=== PATIENT | female | born 1980 | race Caucasian/White ===

== ENCOUNTER 2019-05-31 08:27 | Outpatient (REF) | payer BC, SELFPAY ==
[2019-05-31 20:34] LABS: HCT 37.2 % (36.0-46.0); HGB 11.6 g/dL (12.0-15.5); Mean Corp. HGB Concentration 31.2 g/dL (32.0-36.0); Mean Corpuscular Hemoglobin 25.7 pg (27.0-33.0); Mean Corpuscular Volume 82.5 fL (80-95); Mean Platelet Volume 9.8 fL (8.0-11.0); Platelet Count 423 x1000/uL (130-400); RBC 4.51 m/cumm (4.00-5.20); RBC Distribution Width 13.8 % (11.7-14.6); White Blood Cell Count 11.94 k/cumm (4.4-10.8)
[2019-05-31 21:14] LABS: ALT 25 U/L (14-59); AST 18 U/L (15-37); Albumin 3.6 g/dL (3.4-5.0); Alkaline Phosphatase 108 U/L (46-116); Anion Gap 10.1 mmol/L (3-11); BUN 11 mg/dL (7-18); Bilirubin, Total 0.2 mg/dL (0.2-1.0); CO2 25.9 mmol/L (21.0-32.0); CREATININE 0.68 mg/dL (0.55-1.02); Calcium 8.8 mg/dL (8.5-10.1); Calculated LDL 120 mg/dL (<100); Chloride 102 mmol/L (98-107); Cholesterol 189 mg/dL (<200); Ferritin 56 ng/mL (8-252); Glucose 96 mg/dL (74-106); HDL Cholesterol 41 mg/dL (40-60); Potassium 4.4 mmol/L (3.5-5.1); Sodium 138 mmol/L (136-145); Total Protein 7.4 g/dL (6.4-8.2); Triglyceride 144 mg/dL (<150)
== END 2019-05-31 08:47 ==
LOC: NCHCN 08:27
PROVIDERS: PCP Family Medicine; Visit Provider Family Medicine
DX: Z00.00 Encounter for general adult medical examination without abnormal findings (principal); G25.81 Restless legs syndrome; E66.9 Obesity, unspecified
CPT/HCPCS: 80053; 80061; 85027; 82728

== ENCOUNTER 2021-01-04 10:06 | Outpatient (REF) | payer BC, SELFPAY ==
[2021-01-04 14:18] LABS: HCT 39.6 % (36.0-46.0); HGB 12.2 g/dL (11.2-15.7); MCH 25.3 pg (27.0-33.0); MCHC 30.8 % (32.0-36.0); MPV 9.9 fL (8.0-11.0); Platelet Count 456 10^3/uL (130-400); RBC 4.83 10^6/uL (3.93-5.22); RDW 12.4 % (11.7-14.6); RDW-SD 37.5 fL
[2021-01-04 14:27] LABS: ALT 39 U/L (14-59); AST 22 U/L (15-37); Albumin 3.6 g/dL (3.4-5.0); Alkaline Phosphatase 114 U/L (46-116); Anion Gap 10.9 mmol/L (3-11); BUN 8 mg/dL (7-18); Bilirubin, Total 0.3 mg/dL (0.2-1.0); CO2 26.1 mmol/L (21.0-32.0); CREATININE 0.7 mg/dL (0.55-1.02); Calcium 9.4 mg/dL (8.5-10.1); Chloride 102 mmol/L (98-107); Glucose 113 mg/dL (74-106); Potassium 4.4 mmol/L (3.5-5.1); Sodium 139 mmol/L (136-145); Total Protein 7.8 g/dL (6.4-8.2)
[2021-01-04 19:44] LABS: Calculated LDL 135 mg/dL (<100); Cholesterol 209 mg/dL (<200); HDL Cholesterol 46 mg/dL (40-60); Triglyceride 142 mg/dL (<150)
[2021-01-04 19:45] LABS: Hemoglobin A1C 6.6 % (<5.7)
== END 2021-01-04 10:07 | disposition home or self-care (01) ==
LOC: NCHCN 10:06
PROVIDERS: PCP Family Medicine; Visit Provider Family Medicine
DX: Z00.00 Encounter for general adult medical examination without abnormal findings (principal); R73.01 Impaired fasting glucose; E66.01 Morbid (severe) obesity due to excess calories; R03.0 Elevated blood-pressure reading, without diagnosis of hypertension; D64.9 Anemia, unspecified
CPT/HCPCS: 80053; 80061; 85027; 83036

== ENCOUNTER 2021-01-07 22:22 | Outpatient (REF) | payer BC, SELFPAY ==
[2021-01-07 22:47] LABS: Hemoglobin A1C 6.5 % (<5.7)
== END 2021-01-07 22:23 | disposition home or self-care (01) ==
LOC: NCHCN 22:22
PROVIDERS: PCP Family Medicine; Visit Provider Family Medicine
DX: R73.03 Prediabetes (principal)
CPT/HCPCS: 83036

== ENCOUNTER 2021-06-15 15:24 | Outpatient (REF) | payer BC, SELFPAY ==
[2021-06-15 18:55] LABS: COMMENT (LAB VIEW ONLY) 54.26 mg/dL; Microalb ug/mg Crea 13.1 ug/mg Cr
== END 2021-06-15 15:25 | disposition home or self-care (01) ==
LOC: NCHCN 15:24
PROVIDERS: PCP Family Medicine; Visit Provider Family Medicine
DX: E11.9 Type 2 diabetes mellitus without complications (principal)
CPT/HCPCS: 82043; 82570

== ENCOUNTER 2022-06-09 15:21 | Outpatient (REF) | payer BC, SELFPAY ==
[2022-06-09 15:30] LABS: Hemoglobin A1C 6.6 % (<5.7)
[2022-06-09 15:52] LABS: Vitamin D 25 Total 21.5 ng/mL (30-100)
[2022-06-09 15:58] LABS: ALT 25 U/L (14-59); AST 23 U/L (15-37); Albumin 3.7 g/dL (3.4-5.0); Alkaline Phosphatase 107 U/L (46-116); Anion Gap 5.8 mmol/L (3-11); BUN 12 mg/dL (7-18); Bilirubin, Total 0.2 mg/dL (0.2-1.0); CO2 27.2 mmol/L (21.0-32.0); CREATININE 0.7 mg/dL (0.55-1.02); Calcium 9.3 mg/dL (8.5-10.1); Calculated LDL 104 mg/dL (<100); Chloride 102 mmol/L (98-107); Cholesterol 183 mg/dL (<200); Estimated GFR 109.98 (mL/min/1.73m2); Glucose 102 mg/dL (74-106); HDL Cholesterol 55 mg/dL (40-60); Potassium 4.4 mmol/L (3.5-5.1); Sodium 135 mmol/L (136-145); Total Protein 8.4 g/dL (6.4-8.2); Triglyceride 122 mg/dL (<150)
[2022-06-09 17:10] LABS: COMMENT (LAB VIEW ONLY) 147.86 mg/dL; Microalb ug/mg Crea 6.7 ug/mg Cr
== END 2022-06-09 15:22 | disposition home or self-care (01) ==
LOC: NCHCN 15:21
PROVIDERS: PCP Family Medicine; Visit Provider Family Medicine
DX: Z00.00 Encounter for general adult medical examination without abnormal findings (principal); E11.9 Type 2 diabetes mellitus without complications; R53.83 Other fatigue; E66.01 Morbid (severe) obesity due to excess calories
CPT/HCPCS: 80053; 80061; 82306; 82043; 82570; 83036

== ENCOUNTER 2022-12-06 10:11 | Outpatient (REF) | payer BC, SELFPAY ==
[2022-12-06 16:30] LABS: Abs Immature Grans 0.06 10^3/uL (0.0-0.06); Absolute Basophil Count 0.06 10^3/uL (0.0-0.2); Absolute Eosinophil Count 0.14 10^3/uL (0.0-0.7); Basophils % 0.5; Eosinophils % 1.1; HCT 39.6 % (36.0-46.0); HGB 12.6 g/dL (11.2-15.7); Immature Grans % 0.5; Lymphocytes % 19.5; MCH 26.4 pg (27.0-33.0); MCHC 31.8 % (32.0-36.0); MCV 83 fL (80-95); MPV 9.9 fL (8.0-11.0); Monocytes % 4.4; Platelet Count 393 10^3/uL (130-400); RBC 4.77 10^6/uL (3.93-5.22); RDW 13.2 % (11.7-14.6); RDW-SD 40.3 fL; WBC 12.39 10^3/uL (4.4-10.8)
[2022-12-06 16:31] LABS: Absolute Lymphocyte Count 2.42 10^3/uL (1.2-3.4); Absolute Monocyte Count 0.55 10^3/uL (0.1-0.8); Absolute Neutrophil Count 9.17 10^3/uL (1.2-6.7)
[2022-12-06 17:06] LABS: ALT 26 U/L (14-59); AST 21 U/L (15-37); Albumin 3.7 g/dL (3.4-5.0); Alkaline Phosphatase 98 U/L (46-116); Anion Gap 9.4 mmol/L (3-11); BUN 10 mg/dL (7-18); Bilirubin, Total 0.2 mg/dL (0.2-1.0); C-Reactive Protein 2.03 mg/dL (0.0-0.3); CO2 24.6 mmol/L (21.0-32.0); CREATININE 0.8 mg/dL (0.55-1.02); Calcium 9.7 mg/dL (8.5-10.1); Chloride 102 mmol/L (98-107); Glucose 191 mg/dL (74-106); Potassium 3.9 mmol/L (3.5-5.1); Sodium 136 mmol/L (136-145); TSH (W/Ref FT4) 0.94 uIU/mL (0.36-3.74); Total Protein 8.2 g/dL (6.4-8.2)
[2022-12-06 17:46] LABS: Vitamin B12 243 pg/mL (193-986)
[2022-12-07 17:53] LABS: Rheumatoid Factor <8.6 IU/mL (<12.0)
[2022-12-08 08:54] LABS: Cyclic Citrullinated Peptide <2.5 U/mL (<5.0)
[2022-12-08 14:52] LABS: ANA Interpretation Positive (Negative)
== END 2022-12-06 10:12 | disposition home or self-care (01) ==
LOC: NCHCN 10:11
PROVIDERS: PCP Family Medicine; Visit Provider Family Medicine
DX: M13.0 Polyarthritis, unspecified (principal); D64.9 Anemia, unspecified; E66.01 Morbid (severe) obesity due to excess calories; R53.83 Other fatigue; E11.9 Type 2 diabetes mellitus without complications; R79.82 Elevated C-reactive protein (CRP)
CPT/HCPCS: 80053; 86200; 82607; 84443; 85025; 86038; 86140; 86431

== ENCOUNTER 2022-12-21 11:18 | Outpatient (REF) | payer BC, SELFPAY ==
[2022-12-23 12:56] LABS: SS-A Antibody 1.9 Units (<20.0)
[2022-12-23 14:13] LABS: dsDNA Ab, IgG <12.3 IU/mL (<30.0)
[2022-12-23 15:08] LABS: RNP Ab, IgG 1.3 Units (<20.0); Sm (Smith) Ab, IgG 2.7 Units (<20.0)
[2022-12-26 12:51] LABS: Scl 70 Antibodies, IgG <0.2 U
[2023-01-06 01:09] LABS: Anti-EJ Ab Negative (Negative); Anti-Jo-1 Ab <20 Units (<20); Anti-Ku Ab Negative (Negative); Anti-MDA-5 Ab (CADM-140) <20 Units (<20); Anti-Mi-2-Ab Negative (Negative); Anti-NXP-2 (P140) Ab <20 Units (<20); Anti-OJ Ab Negative (Negative); Anti-PL-12 Ab Negative (Negative); Anti-PL-7 Ab Negative (Negative); Anti-PM/Scl-100 Ab <20 Units (<20); Anti-SAE1 Ab, IgG <20 Units (<20); Anti-SRP Ab Negative (Negative); Anti-SS-A 52kD Ab, IgG <20 Units (<20); Anti-TIF-1gamma Ab <20 Units (<20); Anti-U1 RNP Ab <20 Units (<20); Anti-U2 RNP Ab Negative (Negative); Anti-U3 RNP (Fibrillarin) Negative (Negative)
== END 2022-12-21 11:19 | disposition home or self-care (01) ==
LOC: NCHCN 11:18
PROVIDERS: PCP Family Medicine; Visit Provider Family Medicine
DX: M13.0 Polyarthritis, unspecified (principal); R79.89 Other specified abnormal findings of blood chemistry
CPT/HCPCS: 83516; 83520; 86235; 86147; 86225

== ENCOUNTER 2023-01-04 11:40 | Outpatient (REF) | payer BC, SELFPAY ==
[2023-01-04 14:15] LABS: Anion Gap 10.2 mmol/L (3-11); BUN 13 mg/dL (7-18); CO2 21.8 mmol/L (21.0-32.0); CREATININE 0.6 mg/dL (0.55-1.02); Calcium 9.3 mg/dL (8.5-10.1); Chloride 103 mmol/L (98-107); Estimated GFR 113.44 (mL/min/1.73m2); Glucose 177 mg/dL (74-106); Potassium 4.1 mmol/L (3.5-5.1); Sodium 135 mmol/L (136-145)
[2023-01-05 09:24] LABS: IgA 164 mg/dL (85-499); IgG 1026 mg/dL (610-1616); IgM 237 mg/dL (35-242)
[2023-01-05 18:14] LABS: Scl 70 Antibodies, IgG <0.2 U
[2023-01-06 11:44] LABS: dsDNA Ab, IgG <12.3 IU/mL (<30.0)
[2023-01-06 16:10] LABS: SS-B (La) Ab, IgG 2.8 Units (<20.0)
[2023-01-06 16:15] LABS: SS-A Antibody 1.9 Units (<20.0)
[2023-01-06 16:16] LABS: Sm (Smith) Ab, IgG 2.8 Units (<20.0)
[2023-01-07 15:00] LABS: RNP Ab, IgG 2.1 Units (<20.0)
== END 2023-01-04 11:41 | disposition home or self-care (01) ==
LOC: NCHCN 11:40
PROVIDERS: PCP Family Medicine; Visit Provider Family Medicine
DX: R79.89 Other specified abnormal findings of blood chemistry (principal); M13.0 Polyarthritis, unspecified; R03.0 Elevated blood-pressure reading, without diagnosis of hypertension
CPT/HCPCS: 80048; 82784; 86225; 86235

== ENCOUNTER 2023-06-13 16:45 | Outpatient (REF) | payer BC, SELFPAY ==
--- NOTE | 2023-06-13 08:45 | PAPFT_PTH ---
PATIENT: Carlee Holly LOC: [facility]#:[id number] AGE/SX: 42/F ROOM: RE06/13/[address]: Alon Stein : 1980 BED: DIS: 06/13/2023 SPEC #: [id number] RECD: 06/13/23 17:33 STATUS: GERMAINE REQ #: [id number] JIMMIE: 06/13/23 08:[address]: Alon Stein DEPT: [facility] Cytology RECD BY: Mayra Centeno Tissues: 1 - CX/ENDOCX FOR PAP SMEARS Procedures: PAP THIN PREP/[facility] Screening HPV DNA PROBE Comments: [id number]
[2023-06-13 16:47] LABS: COMMENT (LAB VIEW ONLY) 96.42 mg/dL; Microalb ug/mg Crea 6.3 ug/mg Cr
== END 2023-06-13 16:46 | disposition home or self-care (01) ==
LOC: NCHCN 16:45
PROVIDERS: PCP Family Medicine; Referring Provider Family Medicine; Visit Provider Family Medicine
DX: E11.9 Type 2 diabetes mellitus without complications (principal)
CPT/HCPCS: 88142; 82043; 82570; 87624

== ENCOUNTER 2024-07-19 15:54 | Outpatient (REF) | payer BC, SELFPAY ==
[2024-07-19 15:47] LABS: COMMENT (LAB VIEW ONLY) 191.81 mg/dL; Microalb ug/mg Crea 14.7 ug/mg Cr
== END 2024-07-19 15:55 | disposition home or self-care (01) ==
LOC: NCHCN 15:54
PROVIDERS: PCP Family Medicine; Visit Provider Family Medicine
DX: E11.9 Type 2 diabetes mellitus without complications (principal)
CPT/HCPCS: 82043; 82570